=== PATIENT | female | born 1970 | race Caucasian/White ===

== ENCOUNTER 2016-09-05 10:08 | Emergency (ER) | payer OTHER ==
[2016-09-05 10:20] VITALS: PULSE 78; TEMP 98
--- NOTE | 2016-09-05 11:41 | UCPHY ---
H & P Patient Type: Established Chief Complaint Nursing Narrative: Monday - lips swollen with rash - took benadryl with relief - S/S cont with out taking benadryl Time Seen by Provider: 09/05/16 11:00 HPI/ROS: CHIEF COMPLAINT: Lip swelling History by patient HISTORY OF PRESENT ILLNESS: 45 old woman presents with 3 days of lip swelling and intermittent itching which she has been taking Benadryl for with some relief. The Benadryl is making her sleepy making that she can't go to work. She denies any tongue swelling, throat tightness or difficulty breathing. She has noticed no rash except she says it turns red when she scratches. She has no prior history of allergic reactions. She has no new exposures. She did not eat out on Monday. The patient is on lisinopril which she has been on for several years. REVIEW OF SYSTEMS: As in HPI, and all other systems reviewed and are negative Source: Patient - Personal History Current Tetanus Diphtheria and Acellular Pertussis (TDAP): Yes - Medical/Surgical History Hx Asthma: No Hx Chronic Respiratory Disease: No Hx Diabetes: No Hx Cardiac Disease: No Hx Renal Disease: No Hx Cirrhosis: No Hx Alcoholism: No Hx HIV/AIDS: No Hx Splenectomy or Spleen Trauma: No Other PMH: DEPRESSION/gerd,and interstitial cystitis,htn. surg-hyst - Family History Significant Family History: No pertinent family hx - Social History Smoking Status: Current some day smoker - Physical Exam Exam: General Appearance: Alert and no distress. Speaking full sentences Head: normocephalic, atraumatic, no sinus tenderness Eyes: Pupils equal and round no injection. OP: Lips with mild swelling, mucus membranes moist, no tongue swelling, no floor of the mouth swelling, no tonsillar enlargement Neck: no meningismus, no cervical nodes, no submandibular nodes Respiratory: Chest is nontender, lungs are clear to auscultation. Cardiac: regular rate and rhythm. Gastrointestinal: Abdomen is soft and nontender, no masses, bowel sounds normal. Musculoskeletal: Neck is supple and nontender. Extremities have full range of motion and are nontender. Skin: No rashes or lesions. Constitutional: Initial Vital Signs Temperature (C) 36.6 C 09/05/16 10:18 Heart Rate 78 09/05/16 10:18 Respiratory Rate 18 09/05/16 10:18 Blood Pressure 137/78 H 09/05/16 10:18 O2 Sat (%) 96 09/05/16 10:18 O2 Delivery Mode Room Air Allergies/Adverse Reactions: oxycodone HCl [From Percocet] Allergy (Verified 07/27/15 16:55) Sulfa (Sulfonamide Antibiotics) Allergy (Verified 07/27/15 16:55) Home Medications: Medication Instructions Recorded Lisinopril 07/22/13 Prozac 40 mg 07/22/13 Wellbutrin Sr 07/22/13 AZITHROMYCIN [Z-PACK] 250 mg PO DAILY #6 tab 07/27/15 Estradiol 07/27/15 Omeprazole 07/27/15 Medical Decision Making ED Course/Re-evaluation: [age] old woman presents with 3 days of intermittent lip swelling and some skin itching. Patient is on lisinopril. There is no tongue or airway involvement and the symptoms have been going on for 3 days now. Patient is not wheezing. I suspect angioedema related to her PARTH-inhibitor. I recommended she stop her lisinopril have follow-up as soon as possible to get on a new blood pressure medication. She can to continues take Benadryl and/or cetirizine as needed for the itching and swelling. Departure - Departure Disposition: Home, Routine, Self-Care Clinical Impression: Angioedema of lips Qualifiers: Encounter type: initial encounter Qualified Code(s): T78.3XXA - Angioneurotic edema, initial encounter Condition: Good Instructions: Angioedema (ED) Additional Instructions: You were seen by Dr. Adilene Gray today. Return for any worsening or new concerns. Stop taking lisinopril and get in to be seen as soon as possible to start a new blood pressure medication. You may try cetirizine instead of Benadryl. Return for any worsening, tongue swelling throat tightening or other new worsening or concerns. Please establish a new primary care physician. We have referred you to [facility]. Referrals: Akash Costello MD [Medical Doctor] - As per Instructions Simba Aguero MD [Primary Care Provider] - As per Instructions - PQRS PQRS Measurement: NA
[2016-09-05 11:57] VITALS: BP 141/91; RESP 16; O2SAT 97
== END 2016-09-05 11:57 | disposition home or self-care (01) ==
LOC: CED 10:08
DX: T78.3XXA Angioneurotic edema, initial encounter (principal)
CPT/HCPCS: 99213-PO; G0463-PO

== ENCOUNTER 2016-09-11 18:29 | Emergency (ER) | payer OTHER ==
--- NOTE | 2016-09-11 19:54 | UCPHY ---
H & P Time Seen by Provider: 09/11/16 18:52 Patient Type: Established HPI/ROS: CHIEF COMPLAINT: Allergic reaction. HISTORY OF PRESENT ILLNESS: The patient is a 45-year-old female presenting with allergic reaction. The patient was seen here 6 days ago with an allergic reaction, limited to lip swelling. At the time it seemed most likely due to the Lisinopril, she was told to discontinue her Lisinopril. She has since stopped taking the medication and has been taking Zyrtec and Benadryl, but symptoms have not improved. She was distinctly better for a little bit, but never going away. But today got quite a bit worse. There was approximately a 40 minutes sun exposure walking around 1 of the local [facility]. She continues to have lip swelling, facial redness and rash, after both p.o. Zyrtec and Benadryl. Rash extends to her neck and chest, does not involve the arms or the inner thigh No known new exposure such as other BP meds, antibiotics, new lotions or makeup or foods - no nuts, soy, berries. She denies tongue swelling. No shortness of breath. Nor is there any nausea vomiting or diarrhea REVIEW OF SYSTEMS: Constitutional: No fever, no chills. Eyes: No discharge. ENT: No sore throat. No tongue swelling or throat swelling, but there is Lip swelling. Cardiovascular: No chest pain, no palpitations. Respiratory: No cough, shortness of breath, or wheezing. Gastrointestinal: No nausea vomiting or diarrhea. No abdominal pain. Genitourinary: No hematuria or frequency. Musculoskeletal: No back pain. Skin: Facial rash. Neurological: No headache. 10 point ROS otherwise negative Past Medical/Surgical History: PTSD, Depression, Hypertension Social History: Cigarette smoker. 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 Smoking Status: Current every day smoker Physical Exam: General Appearance: Alert, no distress. Afebrile. Normal phonation. No respiratory distress. Eyes: Pupils equal and round no pallor or injection. No icterus ENT, Mouth: Mucous membranes moist. Pharynx without erythema or exudate. TM Clear. There is mild swelling both upper lip but not the eyelids. No swelling to the tongue or throat. Uvula is without edema CV: R, R, Rhythm. Respiratory: There are no retractions, lungs are clear to auscultation. Abdomen: Soft and nontender, no masses, bowel sounds normal. Skin: Warm and dry. [place] macular rash to the upper chest and neck. However, on the face these are raised in blothches. Musculoskeletal: No joint swelling. Extremities: No edema. No rashes Psych: Nl affect Constitutional: Initial Vital Signs Temperature (C) 37.4 C 09/11/16 18:49 Heart Rate 76 09/11/16 18:49 Respiratory Rate 20 09/11/16 18:49 Blood Pressure 157/98 H 09/11/16 18:49 O2 Sat (%) 95 09/11/16 18:49 O2 Delivery Mode Room Air Allergies/Adverse Reactions: oxycodone HCl [From Percocet] Allergy (Verified 09/11/16 18:48) Sulfa (Sulfonamide Antibiotics) Allergy (Verified 09/11/16 18:48) Home Medications: Medication Instructions Recorded Prozac 40 mg 07/22/13 Wellbutrin Sr 07/22/13 Estradiol 07/27/15 Omeprazole 07/27/15 EPINEPHrine [Epipen 0.3 MG] 0.3 mg IM ONCE #2 syr 09/11/16 [place] 5/325 (*) 09/11/16 hydrOXYzine HCL [Vistaril 25MG] 75 mg PO QID PRN #30 tab 09/11/16 predniSONE [Prednisone] 20 mg PO BID #28 tablet 09/11/16 Medical Decision Making ED Course/Re-evaluation: The patient presents with 6 days of worsening allergic reaction. The patient was seen here 09/05, 6 days ago with rash and lip swelling. She was told to discontinue her Lisinopril. She has been taking Benadryl and Zyrtec, but finding no relief. Today her symptoms worsened. She reports lip tingling and increased rash to her face and neck. No tongue swelling or shortness of breath. At this point in time, some 6 days after the last lisinopril that seems less and less likely the etiology. I will go ahead and order tryptase to have further clarification as to whether this is a hypersensitivity reaction type 1. I discussed epinephrine with the patient. While she does not need this at this time, it is unclear as to how bad this reaction will get. She has had it in the past for anaphylaxis due to Sulfa drugs. Because symptoms are not acute, I do not recommend Epi at this time. I will send the patient home with Prednisone and an adrenaline kit. Also, switched to Atarax. She does have a psych history, but tells me she has taken Prednisone in the past without issue. - Data Points Medications Given: Discontinued Medications Epinephrine HCl (Epinephrine) 0.3 mg IM EDNOW ONE Stop: 09/11/16 20:36 Last Admin: 09/11/16 21:05 Dose: Not Given Prednisone (Prednisone) 40 mg PO EDNOW ONE Stop: 09/11/16 20:36 Last Admin: 09/11/16 20:50 Dose: 40 mg Departure - Departure Disposition: Home, Routine, Self-Care Clinical Impression: Allergic reaction Qualifiers: Encounter type: initial encounter Qualified Code(s): T78.40XA - Allergy, unspecified, initial encounter Condition: Good Instructions: General Allergic Reaction (ED) Additional Instructions: 1. Take full course of Prednisone as prescribed. 2.Take 75mg Benadryl 4 times daily. 3. I recommend Atarax as a sedating antihistamine if the Benadryl does not improve your symptoms. Do not take this at the same time as Benadryl. 4. Avoid getting any products on your face. 5. Please return if your symptoms do not improve or if they worsen. Referrals: Patti Gaspar [Other] - As per Instructions Prescriptions: EPINEPHrine [Epipen 0.3 MG] 0.3 mg IM ONCE #2 syr hydrOXYzine HCL [Vistaril 25MG] 75 mg PO QID PRN #30 tab PRN Reason: rash, hives itching predniSONE [Prednisone] 20 mg PO BID #28 tablet - PQRS PQRS Measurement: NA Report Scribed for: Spenser Chapa Report Scribed by: Dary Ferro Date of Report: 09/11/16 Time of Report: 20:13
[2016-09-11] MEDS ORDERED: predniSONE 20 MG TAB PO ONE (20:35)
[2016-09-11 21:29] VITALS: BP 149/95; PULSE 79; RESP 16; TEMP 99; O2SAT 96
== END 2016-09-11 20:54 | disposition home or self-care (01) ==
LOC: CED 18:29
DX: T78.40XD Allergy, unspecified, subsequent encounter (principal); I10 Essential (primary) hypertension; Z72.0 Tobacco use
CPT/HCPCS: 83520-90; G0463-PO; J0171

== ENCOUNTER 2016-09-27 09:09 | Emergency (ER) | payer OTHER ==
[2016-09-27 09:17] VITALS: BP 156/99; PULSE 82; RESP 16; TEMP 98.8; O2SAT 95
--- NOTE | 2016-09-27 09:18 | EDPHY ---
H & P Stated Complaint: Rash on face and neck x 1 month. Denies itching/swelling in mouth/throat. HPI/ROS: CHIEF COMPLAINT: Rash HISTORY OF PRESENT ILLNESS: The patient is a 46-year-old female who presents with returned rash to the face and upper chest. The patient was evaluated 09/05 and 09/11 for the same rash. At that time she also had lip swelling. She was told to stop her Lisinopril and was started on Losartan on 09/16 which seems to be controlling her blood pressure adequately. She has taken 2 courses of prednisone and feels that it provides relief. She ended her last course of Prednisone (20mg PO BID) 3 days ago. Her rash returned yesterday with associated itchiness and burning. She resumed Benadryl yesterday, 75 mg PO QID. She has tried nonsedating antihistamines as well as multiple creams to help with itchiness, but found no alleviation. She has a scheduled appointment with her financial operations consultant 10/05. She denies throat swelling, difficulty breathing, or chest pain. No fever or recent sickness. No known exposures. REVIEW OF SYSTEMS: A ten point review of systems was performed and is negative with the exception of the items mentioned in the HPI. Source: Patient Exam Limitations: No limitations - Personal History LMP (Females 10-55): Hysterectomy Current Tetanus/Diphtheria Vaccine: Unsure Current Tetanus Diphtheria and Acellular Pertussis (TDAP): Unsure - Medical/Surgical History Hx Asthma: No Hx Chronic Respiratory Disease: No Hx Diabetes: No Hx Cardiac Disease: No Hx Renal Disease: No Hx Cirrhosis: No Hx Alcoholism: No Hx HIV/AIDS: No Hx Splenectomy or Spleen Trauma: No Other PMH: depression, GERD, interstitial cystitis, total hysterectomy, HTN, PTSD - Social History Smoking Status: Current every day smoker (1-2 cig/day) Alcohol Use: None Additional 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 - Physical Exam Exam: General Appearance: Alert. Vital signs reviewed. BP 156/99. Eyes: Pupils equal and round, no conjunctival injection, no discharge. Anicteric. ENT, Mouth: Mucous membranes are moist, no oropharyngeal erythema or edema. No tongue or throat swelling. Swallowing easily. Neck: No lymphadenopathy, supple. Trachea midline. Respiratory: Lungs are clear to auscultation; No wheezes. Cardiovascular: Regular rate and rhythm; no murmur, rub, or gallop. Gastrointestinal: Abdomen is soft and nontender. Skin: Scattered red maculopapular rash, not urticarial, that extends from face to upper chest. 1 small papular lesion on left medial forearm. Back: Nontender to palpation over the thoracolumbar spine. No CVAT. Extremities: No lower extremity edema, no calf tenderness or swelling. Neurological: Alert and oriented. Moving all four extremities easily and equally. Psychiatric: Normal affect. Constitutional: Initial Vital Signs Temperature (C) 37.1 C 09/27/16 09:14 Heart Rate 82 09/27/16 09:14 Respiratory Rate 16 09/27/16 09:14 Blood Pressure 156/99 H 09/27/16 09:14 O2 Sat (%) 95 09/27/16 09:14 O2 Delivery Mode Room Air Allergies/Adverse Reactions: Sulfa (Sulfonamide Antibiotics) Allergy (Severe, Verified 09/27/16 09:18) Anaphylaxis oxycodone HCl [From Percocet] Allergy (Mild, Verified 09/27/16 09:18) Vomiting Home Medications: Medication Instructions Recorded Prozac 40 mg 07/22/13 Wellbutrin Sr 07/22/13 Estradiol 07/27/15 LORazepam 09/27/16 Losartan Potassium 09/27/16 Restoril 09/27/16 Vicodin 5-300 mg Tablet 09/27/16 methylPREDNISolone [Medrol Dose 4 mg PO DAILY #1 ea 09/27/16 Luis] Medical Decision Making ED Course/Re-evaluation: The patient is a 46-year-old female who presents with returned rash to her face and upper chest. She was seen here 09/05 and 09/11 for the same symptoms. On 09/11 she was prescribed 20mg BID x28 pills of Prednisone. She has been taking 75mg Benadryl x4 per day. She states the prednisone improved her symptoms and is requesting another prescription. She ended the Prednisone 3 days ago. She continued taking the Benadryl, but the her rash returned yesterday. On examination she has scattered red maculopapular rash, not urticarial, that extends from face to upper chest. She also has 1 small papular lesion on left medial forearm. I prescribed the patient a Medrol dose pack. I do not advise continued daily use of prednisone without evaluation by either an financial operations consultant or a core extruder, possibly both. I recommended Sarna lotion and suggested she decrease her Benadryl dose. She has an appointment with an financial operations consultant later this month. I advised the patient to followup with a core extruder as well. I am not convinced that this is an allergic reaction, nor do I think that it is related her lisinopril. I do note that her blood pressure slightly elevated this morning. She feels that the losartan has been working well for her and she will continue to monitor her blood pressures at home and follow her hypertension with her primary care physician. No airway compromise. She does not appear toxic or ill. There is nothing to suggest a serious infection such as meningitis. Nor do I suspect Hdez Bharat or TEN. This does not have the appearance of erythema migrans. The distribution is not suggestive of pityriasis. Differential Diagnosis: Considered a differential diagnosis that includes but is not limited to anaphylaxis, urticaria, allergic reaction, angioedema secondary to medication, contact dermatitis, eczema, pityriasis, meningitis, Lyme disease, cellulitis, abscess. Departure - Departure Disposition: Home, Routine, Self-Care Clinical Impression: Skin rash Condition: Good Instructions: Acute Rash (ED) Additional Instructions: Please see your financial operations consultant as scheduled. Call your core extruder today to arrange a followup appointment as well. Take full course of Prednisone as prescribed. This is a Medrol dose pack that is a tapering dose. I recommend Sarna lotion to help with itchiness. Decrease your daily Benadryl dose. Try Tagamet for nonsedating antihistamine properties. Return to the emergency department with shortness of breath, throat swelling, or chest pain. Referrals: JOSE VILLALOBOS [Other] - As per Instructions Claudio Rivera MD [Medical Doctor] - As per Instructions Prescriptions: methylPREDNISolone [Medrol Dose Luis] 4 mg PO DAILY #1 ea Report Scribed for: Marisabel Anna Report Scribed by: Dary Ferro Date of Report: 09/27/16 Time of Report: 09:47 Physician Review and Approval Statement: 09/27/16 09:18 Portions of this note were transcribed by the medical director. I, Dr. Marisabel Anna, personally performed the history, physical exam, and medical decision- making; and confirmed the accuracy of the information in the transcribed note.
== END 2016-09-27 10:07 | disposition home or self-care (01) ==
LOC: CED 09:09
DX: R21 Rash and other nonspecific skin eruption (principal); I10 Essential (primary) hypertension; F17.210 Nicotine dependence, cigarettes, uncomplicated